=== PATIENT | female | born 1960 | race Caucasian/White ===

== ENCOUNTER → 2018-11-29 | Emergency (ER) | payer OTHER ==
[~2018-11-29] VITALS: Ht 160 cm; Wt 54.4 kg
[~2018-11-29] MED LIST: KETO10TA2 PO
== END | disposition home or self-care (01) ==
LOC: ER 05:01 → EDSEX 05:05
DX: S93.492A Sprain of other ligament of left ankle, initial encounter (principal); X37.1XXA Tornado, initial encounter; Y93.01 Activity, walking, marching and hiking; Y92.89 Other specified places as the place of occurrence of the external cause; Y99.8 Other external cause status